=== PATIENT | female | born 1995 | race Caucasian/White ===

== ENCOUNTER 2022-05-28 09:27 | Inpatient (IN) | payer MEDICAID ==
[~2022-05-28] VITALS: Ht 165.1 cm; Wt 82.1 kg
[~2022-05-28 09:27] MED LIST: IBUP-779 PO; IRON18TA PO; MULT-1116 PO
[2022-05-28] MEDS ORDERED: RHO(D) IMMUNE GLOBULIN 300 MCG/SYR IM ONE (10:45)
[2022-05-28 10:51] LABS: BASOPHILS % 0.4 % (0.0-2.0); EOSINOPHILS % 1.3 % (0.0-5.0); HEMATOCRIT. 37.6 % (36.0-48.0); HEMOGLOBIN. 12.8 g/dL (12.0-16.0); LYMPHOCYTES % 21.9 % (20.0-50.0); MEAN CORPUSCULAR HEMOGLOBIN 32.2 pg (28.0-32.0); MEAN CORPUSCULAR VOLUME 94.4 fL (81.0-99.0); MEAN PLATELET VOLUME 10.5 fl (7.4-10.4); MONOCYTES % 4.4 % (2.0-8.0); PLATELET 154 x1000/uL (130-400); RED BLOOD CELL COUNT 3.98 mill/uL (4.2-5.4); RED CELL DISTRIBUTION WIDTH 14.4 % (11.6-14.6)
[2022-05-28 11:18] LABS: CLARITY URINE CLEAR (CLEAR); COLOR URINE YELLOW (YELLOW); KETONES URINE NEGATIVE (NEGATIVE); LEUKOCYTE ESTERASE URINE NEGATIVE (NEGATIVE); NITRITE URINE NEGATIVE (NEGATIVE); OCCULT BLOOD URINE NEGATIVE (NEGATIVE); PROTEIN URINE TRACE (NEGATIVE); SPECIFIC GRAVITY URINE 1.021 (1.005-1.030)
[2022-05-28 11:19] LABS: HEPATITIS B SURFACE ANTIGEN NEGATIVE
[2022-05-28] MEDS ORDERED: FENTANYL CITRATE/PF 50MCG/ML 2ML VIAL ONE (11:19)
[2022-05-28] MEDS ORDERED: MORPHINE SULFATE/PF 1MG/ML 10ML AMP ONE (11:20)
[2022-05-28] MEDS ORDERED: CEFAZOLIN SODIUM 1000MG/VIAL ONE (11:20)
[2022-05-28] MEDS ORDERED: ONDANSETRON HCL 4MG/2ML INJ ONE (11:20)
[2022-05-28] MEDS ORDERED: DIPHENHYDRAMINE 50MG/ML VIAL ONE (11:20)
[2022-05-28] MEDS ORDERED: OXYTOCIN 10 UNITS/ML 1ML ONE (11:20)
[2022-05-28 11:43] LABS: *AMPHETAMINES SCREEN URINE NEGATIVE (NEGATIVE); *BARBITURATES SCREEN URINE NEGATIVE (NEGATIVE); *BENZODIAZEPINES SCREEN URINE NEGATIVE (NEGATIVE); *COCAINE SCREEN URINE NEGATIVE (NEGATIVE); CANNABINOID URINE SCREEN NEGATIVE (NEGATIVE); METHADONE URINE SCREEN NEGATIVE (NEGATIVE); OPIATES URINE SCREEN NEGATIVE (NEGATIVE); PHENCYCLIDINE URINE SCREEN NEGATIVE (NEGATIVE)
[2022-05-28 11:44] LABS: INR 0.9; PARTIAL THROMBOPLASTIN TIME 28.2 sec (23.4-31.0); PROTHROMBIN TIME 9.8 sec (9.6-11.0)
[2022-05-28] MEDS: LACTATED RINGERS 1,000 ML IV SCH ×3 (12:10→20:47)
[2022-05-28] MEDS ORDERED: GLYCOPYRROLATE 0.2 MG/ML 2ML VIAL ONE (12:45)
[2022-05-28] MEDS ORDERED: KETOROLAC 60MG/2ML VIAL IM ONE (12:57)
[2022-05-28] MEDS ORDERED: OXYTOCIN 30 UNITS/500ML NS PMX 500 ML IV SCH (13:15)
[2022-05-28] MEDS ORDERED: DIPHENHYDRAMINE 25MG CAPSULE PO PRN (13:15)
[2022-05-28] MEDS ORDERED: IBUPROFEN 400MG TABLET PO PRN (13:15)
[2022-05-28] MEDS ORDERED: LANOLIN OINT 7GM TUBE TOP PRN (13:15)
[2022-05-28] MEDS ORDERED: HYDROCODONE/ACETAMINOPHEN 5/325MG TABLET PO PRN (13:15)
[2022-05-28] MEDS ORDERED: ONDANSETRON HCL 4MG/2ML INJ IV PRN (13:15)
[2022-05-28] MEDS ORDERED: RHO(D) IMMUNE GLOBULIN 300 MCG/SYR IM PRN (13:15)
[2022-05-28] MEDS ORDERED: HEMORRHOIDAL SUPP PR PRN (13:15)
[2022-05-28] MEDS ORDERED: DIPHENHYDRAMINE 50MG/ML VIAL IV PRN (13:30)
[2022-05-28] MEDS ORDERED: KETOROLAC 30MG/ML VIAL IV SCH (13:30)
[2022-05-28] MEDS ORDERED: NALOXONE HCL 0.4 MG/ML 1ML VIAL IV PRN (13:30)
[2022-05-28] MEDS ORDERED: BUTORPHANOL TARTRATE 2 MG/ML VIAL IV PRN (13:30)
[2022-05-28 17:30] VITALS: BP 117/65
[2022-05-28 18:00] VITALS: BP 121/65
[2022-05-28 18:30] VITALS: BP 120/65
[2022-05-28 20:15] VITALS: BP 114/65
[2022-05-28] MEDS: MAGNESIUM/ALUMINUM HYDROXIDE/SIMETHICONE 30ML UDC PO SCH (20:47)
[2022-05-29 00:31] VITALS: BP 99/69
[2022-05-29] MEDS: LACTATED RINGERS 1,000 ML IV SCH (05:13)
[2022-05-29] MEDS: IBUPROFEN 800MG TABLET PO PRN ×2 (05:13→15:53)
[2022-05-29 06:03] VITALS: BP 93/59
[2022-05-29 08:00] VITALS: BP 103/57
[2022-05-29] MEDS: SIMETHICONE 80MG TABLET CHEW PO SCH ×2 (08:00→13:00)
[2022-05-29] MEDS: FERROUS SULFATE 325MG TABLET PO SCH ×2 (08:19→15:53)
[2022-05-29] MEDS: PRENATAL VIT/FE FUMARATE/FA TABLET PO SCH (08:19)
[2022-05-29] MEDS: MAGNESIUM/ALUMINUM HYDROXIDE/SIMETHICONE 30ML UDC PO SCH ×3 (08:20→21:01)
[2022-05-29 16:00] VITALS: BP 104/66
[2022-05-29 20:00] VITALS: BP 110/74
[2022-05-29] MEDS: DOCUSATE SODIUM 100MG CAPSULE PO SCH (21:01)
[2022-05-30] MEDS: IBUPROFEN 800MG TABLET PO PRN ×2 (00:38→21:01)
[2022-05-30 06:00] VITALS: BP 115/80
[2022-05-30 07:37] VITALS: BP 124/74
[2022-05-30] MEDS: PRENATAL VIT/FE FUMARATE/FA TABLET PO SCH (08:09)
[2022-05-30] MEDS: FERROUS SULFATE 325MG TABLET PO SCH ×3 (08:09→17:26)
[2022-05-30] MEDS: SIMETHICONE 80MG TABLET CHEW PO SCH ×4 (08:11→21:02)
[2022-05-30 08:45] LABS: BASOPHILS % 0.4 % (0.0-2.0); EOSINOPHILS % 1.8 % (0.0-5.0); HEMATOCRIT. 36.2 % (36.0-48.0); HEMOGLOBIN. 12.4 g/dL (12.0-16.0); LYMPHOCYTES % 14.2 % (20.0-50.0); MEAN CORPUSCULAR VOLUME 93.8 fL (81.0-99.0); MONOCYTES % 3.8 % (2.0-8.0); NEUTROPHILS % 79.8 % (40.0-76.0); PLATELET 165 x1000/uL (130-400); RED BLOOD CELL COUNT 3.86 mill/uL (4.2-5.4); RED CELL DISTRIBUTION WIDTH 14.1 % (11.6-14.6)
[2022-05-30 10:14] LABS: CREATINE KINASE 182 IU/L (26-192)
[2022-05-30] MEDS: MAGNESIUM/ALUMINUM HYDROXIDE/SIMETHICONE 30ML UDC PO SCH ×3 (12:17→21:00)
[2022-05-30 14:17] VITALS: BP 114/68
[2022-05-30] MEDS: DOCUSATE SODIUM 100MG CAPSULE PO SCH (20:55)
[2022-05-30 21:51] VITALS: BP 111/70
[2022-05-31 04:00] VITALS: BP 125/73
[2022-05-31] MEDS ORDERED: IBUP-2030 PO (05:27)
[2022-05-31] MEDS: MAGNESIUM/ALUMINUM HYDROXIDE/SIMETHICONE 30ML UDC PO SCH (07:30)
[2022-05-31 08:00] VITALS: BP 117/66
[2022-05-31] MEDS: SIMETHICONE 80MG TABLET CHEW PO SCH (08:00)
[2022-05-31] MEDS: FERROUS SULFATE 325MG TABLET PO SCH (09:55)
[2022-05-31] MEDS: PRENATAL VIT/FE FUMARATE/FA TABLET PO SCH (09:55)
[2022-05-31 09:56] VITALS: BP 117/66
[2022-05-31] MEDS: IBUPROFEN 800MG TABLET PO PRN (09:56)
== END 2022-05-31 11:25 | disposition home or self-care (01) | DRG 539 ==
LOC: OBSVTOIN 09:27 → 8 EST LDRP 09:27 → 8EST 17:57
PROVIDERS: ADMIT Obstetrics & Gynecology; ATTEND Obstetrics & Gynecology
PROC: 10D00Z1 Extraction of Products of Conception, Low, Open Approach (ICD-10-PCS; principal; 2022-05-28)
PROC: 0UB70ZZ Excision of Bilateral Fallopian Tubes, Open Approach (ICD-10-PCS; 2022-05-28)
DX: O32.8XX0 Maternal care for other malpresentation of fetus, not applicable or unspecified (principal); Z20.822 Contact with and (suspected) exposure to COVID-19; Z30.2 Encounter for sterilization; Z3A.39 39 weeks gestation of pregnancy; Z37.0 Single live birth; Z79.899 Other long term (current) drug therapy
CPT/HCPCS: 36415; 71275; 76815; 80305; 81003; 82550; 82565; 84520; 85025; 86592; 86703; 86762; 86850; 86900; 87340; 87426; 88302; 88307; 93970; 99281; J0690; J1200; J1885; J2274; J2405; J3010; J3490; J7120; J2590